=== PATIENT | male | born 1950 | race African-American/Black ===

== ENCOUNTER → 2016-09-26 | Outpatient (CLI) | payer OTHER ==
[~2016-09-26] VITALS: Ht 185.4 cm; Wt 124.3 kg
[2016-09-26] VITALS (7 sets, daily range): BP systolic 134–150; BP diastolic 80–101
[~2016-09-26] MED LIST: ADULT LOW DOSE81 MG PO; AMOXICILLIN 50500 M1 PO; BAYER CHEWABLE81 MG PO; BUSPIRONE HCL10 MG PO; CARVEDILOL25 MG PO; COLACE100 MG PO; DESYREL150 MG PO; DIGOXIN125 MCG PO; DUONEB 2.5-0.5 M3 ML INH; FISH OIL 1,0001 EAC5 PO; FOLIC ACID1 MG PO; GLUCOPHAGE500 MG PO; HEPARIN SO5000 UNIT2 SUBQ; HYDROCODONE-AP1 EACH PO; IMDUR 60 MG TAB60 M1 PO; IRON325 PO; LASIX 40 MG TAB40 M2 PO; LIPITOR80 MG PO; LISINOPRIL20 MG PO; MEXILETINE 150150 MG PO; NEURONTIN 300300 M1 PO; NITROGLYCERIN0.4 MG SUBLING; NORCO 5-325 TA1 EACH PO; NORVASC10 MG PO; NORVASC5 MG PO; NOVOLOG100 UNIT/1 SUBQ; ORAZINC220 MG PO; PRAZOSIN 1 MG CA1 M1 PO; PRENATAL 19 TA1 EAC1 PO; PRILOSEC20 MG PO; RANEXA1000 MG PO; RANEXA500 MG PO; TRINATE TABLET1 TAB PO; ULTRAM 50MG TAB50 MG PO; VITAMINC500 PO; ZOLOFT 50 MG TA50 MG PO
[2016-09-26 07:57] LABS: HEMATOCRIT 26.3 % (42.0-52.0); HEMOGLOBIN 8.5 gm/dL (14.0-18.0); MCH 24.9 pg (26.0-34.0); MCHC 32.3 g/dL (28.0-37.0); MCV 76.9 fL (80.0-100.0); RBC 3.42 mil/uL (4.50-6.00); RDW 19.7 % (10.5-14.5); WBC 8.4 thou/uL (4.0-11.0)
[2016-09-26 08:09] LABS: CALCIUM 8.5 mg/dL (8.5-10.1); CREATININE 1.2 mg/dL (0.7-1.3)
[2016-09-26 08:16] LABS: INR 1.8; PROTIME 17.8 Seconds (9.3-11.4)
[2016-09-26 08:18] LABS: APTT 43.3 Seconds (24.5-32.8)
== END | disposition home or self-care (01) ==
LOC: SPEC 07:14
PROVIDERS: Radiology Vascular & Interventional Radiology
DX: I70.234 Atherosclerosis of native arteries of right leg with ulceration of heel and midfoot (principal); M86.171 Other acute osteomyelitis, right ankle and foot; E11.9 Type 2 diabetes mellitus without complications; I10 Essential (primary) hypertension; I25.10 Atherosclerotic heart disease of native coronary artery without angina pectoris; I50.9 Heart failure, unspecified; K21.9 Gastro-esophageal reflux disease without esophagitis; E78.5 Hyperlipidemia, unspecified; E66.09 Other obesity due to excess calories; Z95.1 Presence of aortocoronary bypass graft; Z79.4 Long term (current) use of insulin; Z86.73 Personal history of transient ischemic attack (TIA), and cerebral infarction without residual deficits; Z98.890 Other specified postprocedural states